=== PATIENT | female | born 1980 | race African-American/Black ===

== ENCOUNTER 2018-01-20 17:08 | Observation (INO) | payer MEDICAID ==
[~2018-01-20] VITALS: Ht 154.9 cm; Wt 77.1 kg
[2018-01-20 17:29] VITALS: BP 114/57
== END 2018-01-20 19:05 | disposition home or self-care (01) | DRG 566 ==
LOC: ER 17:18 → LDRP 18:05
PROVIDERS: ADMIT Specialist; ATTEND Specialist
DX: O26.893 Other specified pregnancy related conditions, third trimester (principal); N89.8 Other specified noninflammatory disorders of vagina; Z3A.29 29 weeks gestation of pregnancy; Z82.49 Family history of ischemic heart disease and other diseases of the circulatory system
CPT/HCPCS: 59025; 81002; 99285; G0378

== ENCOUNTER 2018-04-19 23:01 | Emergency (ER) | payer MEDICAID ==
[~2018-04-19] VITALS: Ht 154.9 cm; Wt 90.7 kg
[2018-04-19 23:44] LABS: Basophils # (auto) 0 uL; Basophils % (auto) 0.2 % (0.0-2.0); Eosinophils # (auto) 0 uL; Eosinophils % (auto) 0.5 % (0.0-7.0); Lymphocytes # (auto) 0.9 uL; Mean Corpuscular Volume 86.7 fL (80.0-100.0); Monocytes # (auto) 0.4 uL; Red Blood Cells 2.05 10^6/uL (4.0-5.20)
[2018-04-19 23:46] LABS: Hematocrit 17.8 % (36.0-46.0); Lymphocytes % (auto) 10.4 % (10.0-50.0); Mean Corpuscular Hemoglobin 29.6 pg (28.0-32.0); Mean Corpuscular Hgb Conc. 34.1 g/dL (32.0-36.0); Monocytes % (auto) 5.2 % (0.0-12.0); Neutrophils # (auto) 7.2 uL; Neutrophils % (auto) 83.7 % (37.0-80.0); Nucleated Red Blood Cells % 0.1 %; Platelet Count (auto) 328 10^3/uL (140-450); Red Cell Distribution Width 15.3 % (11.8-14.3); White Blood Cell 8.6 10^3/uL (4.4-10.8)
[2018-04-19 23:56] LABS: Hemoglobin 6.1 g/dL (12.2-16.2)
[2018-04-20] VITALS (14 sets, daily range): BP systolic 129–149; BP diastolic 80–97
[2018-04-20 00:02] LABS: INR 0.93 (0.9-1.15); Partial Thromboplastin Time 22.5 sec (23.78-33.04)
[2018-04-20 00:06] LABS: Albumin 2.1 g/dL (3.4-5.0); BUN/Creatinine Ratio 20.3; Bilirubin, Total 0.2 mg/dL (0.2-1.0); Calcium 7.4 mg/dL (8.5-10.1); Potassium 4.1 mmol/L (3.5-5.1)
[2018-04-20] MEDS ORDERED: ONDANSETRON HCL 4 MG/2 ML VIAL IV ONE (00:45)
[2018-04-20] MEDS ORDERED: SODIUM CHLORIDE 0.9% 1,000 ML IV ONE (00:45)
[2018-04-20] MEDS ORDERED: MORPHINE SULFATE 4 MG/ML SYR/VIAL IV ONE (00:45)
[2018-04-20] MEDS ORDERED: LORazepam 2MG/ML-1ML VIAL IV ONE (00:45)
[2018-04-20 04:29] LABS: Urine Bacteria NONE SEEN /hpf (None Seen); Urine Blood 3+ /uL (Negative); Urine Mucus FEW (None Seen); Urine Specific Gravity 1.016 (1.001-1.035); Urine WBC 7 /hpf (0 - 5)
[2018-04-20] MEDS ORDERED: methylPREDNISolone SOD SUCC 125 MG/2 ML VL IV ONE (04:45)
[2018-04-20] MEDS ORDERED: diphenhdrAMINE HCL 50 MG/1 ML VL IV ONE (04:45)
== END 2018-04-20 09:00 | disposition home or self-care (01) ==
LOC: ER 23:02
DX: O90.89 Other complications of the puerperium, not elsewhere classified (principal); K59.00 Constipation, unspecified
CPT/HCPCS: 36415; 36430; 74176; 80053; 81001; 82150; 83690; 85014; 85018; 85025; 85384; 85610; 85730; 86850; 86900; 86901; 86920; 94761; 96361; 96374; 96375; 99285; J1200; J2060; J2270; J2405; J2930; J7030; P9016

== ENCOUNTER 2021-06-07 10:35 | Emergency (ER) | payer MEDICAID ==
[~2021-06-07] VITALS: Ht 154.9 cm; Wt 79.4 kg
[2021-06-07 11:32] VITALS: BP 100/72
[2021-06-07] MEDS ORDERED: cefTRIAXone SOD 1,000 MG VL IM ONE (12:30)
[2021-06-07] MEDS ORDERED: ACETAMINOPHEN 500 MG TAB PO ONE (12:30)
== END 2021-06-07 13:55 | disposition home or self-care (01) ==
LOC: ER 10:35
DX: U07.1 COVID-19 (principal); J02.9 Acute pharyngitis, unspecified
CPT/HCPCS: 71045; 96372; 99283; J0696

== ENCOUNTER 2022-02-18 08:49 | Emergency (ER) | payer MEDICAID ==
[~2022-02-18] VITALS: Ht 154.9 cm; Wt 83.9 kg
[2022-02-18 11:22] VITALS: BP 107/68
[2022-02-18] MEDS ORDERED: AMOX500T92 PO (11:39)
[2022-02-18] MEDS ORDERED: BENZ100C19 PO (11:39)
[2022-02-18] MEDS ORDERED: PRED20TA2 PO (11:39)
[2022-02-18] MEDS ORDERED: cefTRIAXone SOD 1,000 MG VL IM ONE (11:45)
[2022-02-18] MEDS ORDERED: methylPREDNISolone SOD SUCC 125 MG/2 ML VL IM ONE (11:45)
== END 2022-02-18 12:34 | disposition home or self-care (01) ==
LOC: ER 08:49
DX: J06.9 Acute upper respiratory infection, unspecified (principal); Z20.822 Contact with and (suspected) exposure to COVID-19
CPT/HCPCS: 36415; 71046; 87426; 93005; 96372; 99285; J0696; J2930

== ENCOUNTER 2024-06-14 04:50 | Emergency (ER) | payer MEDICAID ==
[~2024-06-14] VITALS: Ht 154.9 cm; Wt 82.0 kg
[~2024-06-14 04:50] MED LIST: AMOX500T92 PO; BENZ100C19 PO; PRED20TA2 PO
[2024-06-14 06:11] LABS: Basophils # (auto) 0 10 ^3/uL (0-0.2); Basophils % (auto) 0.7 % (0.0-2.0); Eosinophils # (auto) 0.2 10 ^3/uL (0-0.8); Hematocrit 39.3 % (36.0-46.0); Hemoglobin 13.5 g/dL (12.2-16.2); Lymphocytes # (auto) 1.4 10 ^3/uL (0.4-5.4); Lymphocytes % (auto) 37.1 % (10.0-50.0); Mean Corpuscular Hemoglobin 30.9 pg (28.0-32.0); Mean Corpuscular Hgb Conc. 34.4 g/dL (32.0-36.0); Mean Corpuscular Volume 89.8 fL (80.0-100.0); Monocytes # (auto) 0.2 10 ^3/uL (0-1.3); Monocytes % (auto) 6.3 % (0.0-12.0); Neutrophils # (auto) 1.9 10 ^3/uL (1.6-8.6); Neutrophils % (auto) 50.9 % (37.0-80.0); Platelet Count (auto) 281 10^3/uL (140-450); Red Blood Cells 4.37 10^6/uL (4.0-5.20); Red Cell Distribution Width 13.8 % (11.8-14.3); White Blood Cell 3.7 10^3/uL (4.4-10.8)
[2024-06-14 06:30] LABS: Alanine Aminotransferase 13 U/L (7-40); Albumin 4.5 g/dL (3.2-4.8); Alkaline Phosphatase 55 U/L (46-116); Anion Gap 6 (5-15); Aspartate Aminotransferase 9 U/L (13-40); Blood Urea Nitrogen 12 mg/dL (9-23); Calcium 9.5 mg/dL (8.7-10.4); Carbon Dioxide 25 mmol/L (20-30); Chloride 108 mmol/L (98-107); Glucose 83 mg/dL (74-106); Potassium 3.8 mmol/L (3.5-5.1); Sodium 139 mmol/L (136-145)
[2024-06-14 06:31] LABS: Bilirubin, Total 0.5 mg/dL (0.2-1.0); Total Protein 7.1 g/dL (5.7-8.2)
[2024-06-14 06:57] LABS: INR 1.02 (0.9-1.15); Partial Thromboplastin Time 28.5 SEC (24.5-34.5); Prothrombin Time 10.8 sec (9.3-11.8)
[2024-06-14 07:39] VITALS: BP 122/77; PULSE 67; RESP 16; TEMP 98.2; O2SAT 100
== END 2024-06-14 07:42 | disposition home or self-care (01) ==
LOC: ER 05:06
DX: R07.89 Other chest pain (principal); Z98.890 Other specified postprocedural states; Z79.899 Other long term (current) drug therapy
CPT/HCPCS: 36415; 71046; 80053; 83735; 83880; 84484; 85025; 85610; 85730; 93005